=== PATIENT | male | born 1945 | race Two or more races ===

== ENCOUNTER → 2017-04-08 | Outpatient (CLI) | payer MEDICARE, OTHER ==
[2017-04-08 12:22] LABS: Basophils # (auto) 0 uL; Basophils % (auto) 0.8 % (0.0-2.0); CONDITION Y; Eosinophils # (auto) 0.2 uL; Eosinophils % (auto) 4.2 % (0.0-7.0); Hematocrit 47.6 % (41.0-53.0); Hemoglobin 16.1 g/dL (13.5-17.5); Lymphocytes # (auto) 1.7 uL; Lymphocytes % (auto) 35.1 % (10.0-50.0); Mean Corpuscular Hemoglobin 30.5 pg (28.0-32.0); Mean Corpuscular Hgb Conc. 33.8 g/dL (32.0-36.0); Mean Corpuscular Volume 90.4 fL (80.0-100.0); Monocytes # (auto) 0.4 uL; Monocytes % (auto) 7.5 % (0.0-12.0); Neutrophils # (auto) 2.5 uL; Neutrophils % (auto) 52.4 % (37.0-80.0); Platelet Count (auto) 189 10^3/uL (140-450); Red Cell Distribution Width 13.8 % (11.6-16.0); White Blood Cell 4.8 10^3/uL (4.4-10.8)
[2017-04-08 14:34] LABS: Albumin 3.9 g/dL (3.4-5.0); BUN/Creatinine Ratio 17.8; Bilirubin, Direct 0.1 mg/dL (0-0.2); Bilirubin, Total 0.7 mg/dL (0.2-1.0); Calcium 8.6 mg/dL (8.5-10.1); Potassium 4.3 mmol/L (3.5-5.1); Total Protein 7.5 g/dL (6.4-8.2)
== END | disposition home or self-care (01) ==
LOC: LAB 08:03
PROVIDERS: ATTEND Internal Medicine Cardiovascular Disease
DX: I10 Essential (primary) hypertension (principal); E78.00 Pure hypercholesterolemia, unspecified; K74.1 Hepatic sclerosis; E11.9 Type 2 diabetes mellitus without complications; E03.9 Hypothyroidism, unspecified; R97.20 Elevated prostate specific antigen [PSA]; R53.81 Other malaise; D64.9 Anemia, unspecified; E55.9 Vitamin D deficiency, unspecified; N39.0 Urinary tract infection, site not specified
CPT/HCPCS: 36415; 80048; 80061; 80076; 82306; 83036; 84153; 84403; 84443; 85025

== ENCOUNTER → 2017-06-29 | Outpatient (CLI) | payer MEDICARE ==
[2017-06-29 12:10] LABS: Basophils # (auto) 0.1 uL; Basophils % (auto) 0.9 % (0.0-2.0); CONDITION Y; Eosinophils # (auto) 0.3 uL; Eosinophils % (auto) 5.5 % (0.0-7.0); Hematocrit 31.9 % (41.0-53.0); Hemoglobin 10.8 g/dL (13.5-17.5); Lymphocytes # (auto) 1.5 uL; Lymphocytes % (auto) 25.8 % (10.0-50.0); Mean Corpuscular Hemoglobin 30.5 pg (28.0-32.0); Mean Corpuscular Hgb Conc. 33.9 g/dL (32.0-36.0); Mean Platelet Volume 9.1 fL (7.4-10.4); Monocytes # (auto) 0.5 uL; Monocytes % (auto) 8.6 % (0.0-12.0); Neutrophils # (auto) 3.5 uL; Neutrophils % (auto) 59.2 % (37.0-80.0); Platelet Count (auto) 296 10^3/uL (140-450); Red Cell Distribution Width 14.6 % (11.6-16.0); White Blood Cell 5.9 10^3/uL (4.4-10.8)
== END | disposition home or self-care (01) ==
LOC: Rad HDHVI 11:10
PROVIDERS: ATTEND Internal Medicine Cardiovascular Disease
DX: D64.9 Anemia, unspecified (principal)
CPT/HCPCS: 36415; 85025; 93971

== ENCOUNTER → 2017-07-12 | Outpatient (CLI) | payer MEDICARE ==
[2017-07-12 09:47] VITALS: BP_SYST 127; BP_SYST 131; BP_DIAS 63; BP_DIAS 78
[2017-07-12 10:00] VITALS: BP 131/78
[2017-07-12 12:00] VITALS: BP 134/76
== END | disposition home or self-care (01) ==
LOC: CHF HDHVI 09:13
PROVIDERS: ATTEND Internal Medicine Cardiovascular Disease
DX: I25.118 Atherosclerotic heart disease of native coronary artery with other forms of angina pectoris (principal); I25.708 Atherosclerosis of coronary artery bypass graft(s), unspecified, with other forms of angina pectoris; I25.718 Atherosclerosis of autologous vein coronary artery bypass graft(s) with other forms of angina pectoris; I25.728 Atherosclerosis of autologous artery coronary artery bypass graft(s) with other forms of angina pectoris; I25.798 Atherosclerosis of other coronary artery bypass graft(s) with other forms of angina pectoris; E11.9 Type 2 diabetes mellitus without complications
CPT/HCPCS: 93005; G0166; G0463

== ENCOUNTER → 2017-07-13 | Outpatient (CLI) | payer MEDICARE ==
[2017-07-13 10:01] VITALS: BP_SYST 126; BP_SYST 129; BP_DIAS 62; BP_DIAS 64
== END | disposition home or self-care (01) ==
LOC: CHF HDHVI 09:07
PROVIDERS: ATTEND Internal Medicine Cardiovascular Disease
DX: I25.118 Atherosclerotic heart disease of native coronary artery with other forms of angina pectoris (principal); I25.708 Atherosclerosis of coronary artery bypass graft(s), unspecified, with other forms of angina pectoris; I25.718 Atherosclerosis of autologous vein coronary artery bypass graft(s) with other forms of angina pectoris; I25.728 Atherosclerosis of autologous artery coronary artery bypass graft(s) with other forms of angina pectoris; I25.798 Atherosclerosis of other coronary artery bypass graft(s) with other forms of angina pectoris; Z95.1 Presence of aortocoronary bypass graft
CPT/HCPCS: 93005; G0166; G0463

== ENCOUNTER → 2017-07-14 | Outpatient (CLI) | payer MEDICARE ==
[2017-07-14 09:13] VITALS: BP_SYST 121; BP_SYST 126; BP_DIAS 67; BP_DIAS 94
== END | disposition home or self-care (01) ==
LOC: CHF HDHVI 09:14
PROVIDERS: ATTEND Internal Medicine Cardiovascular Disease
DX: I25.118 Atherosclerotic heart disease of native coronary artery with other forms of angina pectoris (principal); I25.708 Atherosclerosis of coronary artery bypass graft(s), unspecified, with other forms of angina pectoris; I25.718 Atherosclerosis of autologous vein coronary artery bypass graft(s) with other forms of angina pectoris; I25.728 Atherosclerosis of autologous artery coronary artery bypass graft(s) with other forms of angina pectoris; I25.798 Atherosclerosis of other coronary artery bypass graft(s) with other forms of angina pectoris; Z95.1 Presence of aortocoronary bypass graft
CPT/HCPCS: G0166

== ENCOUNTER → 2017-07-15 | Outpatient (CLI) | payer MEDICARE ==
[2017-07-15 09:18] VITALS: BP_SYST 129; BP_SYST 140; BP_DIAS 74; BP_DIAS 87
== END | disposition home or self-care (01) ==
LOC: CHF HDHVI 09:25
PROVIDERS: ATTEND Internal Medicine Cardiovascular Disease
DX: I25.118 Atherosclerotic heart disease of native coronary artery with other forms of angina pectoris (principal); I25.708 Atherosclerosis of coronary artery bypass graft(s), unspecified, with other forms of angina pectoris; I25.718 Atherosclerosis of autologous vein coronary artery bypass graft(s) with other forms of angina pectoris; I25.728 Atherosclerosis of autologous artery coronary artery bypass graft(s) with other forms of angina pectoris; I25.798 Atherosclerosis of other coronary artery bypass graft(s) with other forms of angina pectoris; Z95.1 Presence of aortocoronary bypass graft
CPT/HCPCS: G0166

== ENCOUNTER → 2017-07-16 | Outpatient (CLI) | payer MEDICARE ==
[2017-07-16 09:16] VITALS: BP_SYST 122; BP_SYST 130; BP_DIAS 71; BP_DIAS 74
== END | disposition home or self-care (01) ==
LOC: CHF HDHVI 09:03
PROVIDERS: ATTEND Internal Medicine Cardiovascular Disease
DX: I25.118 Atherosclerotic heart disease of native coronary artery with other forms of angina pectoris (principal); I25.708 Atherosclerosis of coronary artery bypass graft(s), unspecified, with other forms of angina pectoris; I25.718 Atherosclerosis of autologous vein coronary artery bypass graft(s) with other forms of angina pectoris; I25.728 Atherosclerosis of autologous artery coronary artery bypass graft(s) with other forms of angina pectoris; I25.798 Atherosclerosis of other coronary artery bypass graft(s) with other forms of angina pectoris; Z95.1 Presence of aortocoronary bypass graft
CPT/HCPCS: G0166

== ENCOUNTER → 2017-07-19 | Outpatient (CLI) | payer MEDICARE ==
[2017-07-19 09:16] VITALS: BP_SYST 115; BP_SYST 124; BP_DIAS 67
== END | disposition home or self-care (01) ==
LOC: CHF HDHVI 08:56
PROVIDERS: ATTEND Internal Medicine Cardiovascular Disease
DX: I25.118 Atherosclerotic heart disease of native coronary artery with other forms of angina pectoris (principal); I25.708 Atherosclerosis of coronary artery bypass graft(s), unspecified, with other forms of angina pectoris; I25.718 Atherosclerosis of autologous vein coronary artery bypass graft(s) with other forms of angina pectoris; I25.728 Atherosclerosis of autologous artery coronary artery bypass graft(s) with other forms of angina pectoris; I25.798 Atherosclerosis of other coronary artery bypass graft(s) with other forms of angina pectoris; Z95.1 Presence of aortocoronary bypass graft
CPT/HCPCS: G0166

== ENCOUNTER → 2017-07-20 | Outpatient (CLI) | payer MEDICARE ==
[2017-07-20 09:17] VITALS: BP_SYST 131; BP_SYST 133; BP_DIAS 68; BP_DIAS 77
== END | disposition home or self-care (01) ==
LOC: CHF HDHVI 08:57
PROVIDERS: ATTEND Internal Medicine Cardiovascular Disease
DX: I25.118 Atherosclerotic heart disease of native coronary artery with other forms of angina pectoris (principal); I25.708 Atherosclerosis of coronary artery bypass graft(s), unspecified, with other forms of angina pectoris; I25.718 Atherosclerosis of autologous vein coronary artery bypass graft(s) with other forms of angina pectoris; I25.728 Atherosclerosis of autologous artery coronary artery bypass graft(s) with other forms of angina pectoris; I25.798 Atherosclerosis of other coronary artery bypass graft(s) with other forms of angina pectoris; Z98.61 Coronary angioplasty status
CPT/HCPCS: G0166

== ENCOUNTER → 2017-07-21 | Outpatient (CLI) | payer MEDICARE ==
[2017-07-21 09:15] VITALS: BP 129/76
[2017-07-21 12:20] LABS: BUN/Creatinine Ratio 13.6; Calcium 8.2 mg/dL (8.5-10.1); Potassium 4.3 mmol/L (3.5-5.1)
[2017-07-21 12:23] LABS: Basophils # (auto) 0.1 uL; Eosinophils # (auto) 0.3 uL; Eosinophils % (auto) 5.6 % (0.0-7.0); Hematocrit 38.7 % (41.0-53.0); Hemoglobin 12.9 g/dL (13.5-17.5); Lymphocytes # (auto) 1.3 uL; Lymphocytes % (auto) 23.7 % (10.0-50.0); Mean Corpuscular Hemoglobin 30.4 pg (28.0-32.0); Mean Corpuscular Hgb Conc. 33.3 g/dL (32.0-36.0); Mean Corpuscular Volume 91.4 fL (80.0-100.0); Monocytes # (auto) 0.4 uL; Monocytes % (auto) 7.4 % (0.0-12.0); Neutrophils # (auto) 3.4 uL; Neutrophils % (auto) 62.3 % (37.0-80.0); Nucleated Red Blood Cells % 0.1 %; Platelet Count (auto) 135 10^3/uL (140-450); Red Cell Distribution Width 14.7 % (11.8-14.3); White Blood Cell 5.5 10^3/uL (4.4-10.8)
[2017-07-21 12:35] LABS: INR 1.03 (0.9-1.15); Partial Thromboplastin Time 28.5 sec (22.64-33.71); Prothrombin Time 11.2 sec (9.37-12.3)
== END | disposition home or self-care (01) ==
LOC: CHF HDHVI 08:55
PROVIDERS: ATTEND Internal Medicine Cardiovascular Disease
DX: Z01.818 Encounter for other preprocedural examination (principal); I25.10 Atherosclerotic heart disease of native coronary artery without angina pectoris; I44.1 Atrioventricular block, second degree; I10 Essential (primary) hypertension; D64.9 Anemia, unspecified; R79.1 Abnormal coagulation profile; Z95.0 Presence of cardiac pacemaker
CPT/HCPCS: 36415; 71020; 80048; 85025; 85610; 85730; 93005; G0463

== ENCOUNTER → 2017-08-04 | Outpatient (CLI) | payer MEDICARE ==
[2017-08-04 12:20] VITALS: BP 140/95
[2017-08-04 13:20] VITALS: BP 150/90
[2017-08-04 16:49] LABS: Basophils # (auto) 0.1 uL; Basophils % (auto) 1.6 % (0.0-2.0); Eosinophils # (auto) 0.3 uL; Hemoglobin 12.3 g/dL (13.5-17.5); Lymphocytes # (auto) 1.1 uL; Lymphocytes % (auto) 21.4 % (10.0-50.0); Mean Corpuscular Hemoglobin 30.2 pg (28.0-32.0); Mean Corpuscular Hgb Conc. 33.2 g/dL (32.0-36.0); Mean Corpuscular Volume 90.7 fL (80.0-100.0); Mean Platelet Volume 9.4 fL (6.9-10.8); Monocytes # (auto) 0.3 uL; Neutrophils # (auto) 3.4 uL; Nucleated Red Blood Cells % 0.5 %; Platelet Count (auto) 226 10^3/uL (140-450); Red Cell Distribution Width 14.4 % (11.8-14.3); White Blood Cell 5.1 10^3/uL (4.4-10.8)
== END | disposition home or self-care (01) ==
LOC: CHF HDHVI 12:47
PROVIDERS: ATTEND Internal Medicine Cardiovascular Disease
DX: D64.9 Anemia, unspecified (principal)
CPT/HCPCS: 36415; 85025; G0463

== ENCOUNTER → 2018-12-12 | Outpatient (CLI) | payer MEDICARE ==
--- NOTE | 2018-12-12 09:00 | NUR ---
EECP Tx# 1 This is Tx # 1 for Patient.Patient has Previously done EECP back in 2017. Patient has been informed of his 35 days of Tx's. Patient has been provided with EECP leggings as well as an EECP brochure. EKG has been completed. Patient has a Hx of : CORONARY ARTERY DISEASE SICK SINUS SYNDROME STATUS POST PACEMAKER CONGESTIVE HEART FAILURE HYPERTENSION HYPERLIPIDEMIA GOUT First BP check on right arm is at 112/63 with a heart rate of 69bpm. Patient denies any symptoms or discomfort at this time. 1st pleth at 1 min into Tx patient EECP pressure will increase if tolerable. 2nd pleth at 26 min into Tx patient is tolerating Tx pressure at 160 well with no discomfort or any other symptoms at this time. 3rd and final pleth at 50 min into Tx patient is doing well no symptoms or discomfort at this time.Monitor shows excellent pleth valves with a heart rate of 67bpm.Patient has 10 min left till his Tx is completed for the day. Last BP check on his L arm is at 117/81 with a heart rate of 79bpm. Patient denies any symptoms or discomfort at this time. Patient will come in on his next visit for Tx#2
[2018-12-12 09:16] VITALS: BP 112/63
--- NOTE | 2018-12-12 09:16 | NUR ---
CHF PT TO CHF BASELINE EKG DONE AND NEW START EECP TX
[2018-12-12 10:16] VITALS: BP 117/81
--- NOTE | 2018-12-12 10:16 | NUR ---
Discharge Instructions See e-MAR for any mediations given with this visit. Patient education given on disease process. Patient verbalized understanding. Previous labs reviewed. Patient discharged in stable condition with after care instructions and follow up appointment.
[2018-12-12 10:34] VITALS: BP_SYST 112; BP_SYST 117; BP_DIAS 63; BP_DIAS 81
== END | disposition home or self-care (01) ==
LOC: CHF HDHVI 09:35
PROVIDERS: ATTEND Internal Medicine Cardiovascular Disease
DX: I25.118 Atherosclerotic heart disease of native coronary artery with other forms of angina pectoris (principal); I25.718 Atherosclerosis of autologous vein coronary artery bypass graft(s) with other forms of angina pectoris; I25.728 Atherosclerosis of autologous artery coronary artery bypass graft(s) with other forms of angina pectoris; I25.798 Atherosclerosis of other coronary artery bypass graft(s) with other forms of angina pectoris; I25.10 Atherosclerotic heart disease of native coronary artery without angina pectoris; I25.708 Atherosclerosis of coronary artery bypass graft(s), unspecified, with other forms of angina pectoris; E11.9 Type 2 diabetes mellitus without complications; R94.31 Abnormal electrocardiogram [ECG] [EKG]; Z98.61 Coronary angioplasty status
CPT/HCPCS: 93005; G0166; G0463

== ENCOUNTER → 2018-12-19 | Outpatient (CLI) | payer MEDICARE ==
[2018-12-19 09:21] VITALS: BP_SYST 126; BP_SYST 130; BP_DIAS 61; BP_DIAS 62
--- NOTE | 2018-12-19 16:54 | NUR ---
EECP Tx# 2 First BP check on his Left arm is at 130/62 with a heart rate of 83bpm. Patient denies any symptoms or discomfort at this time. 1st pleth at 4 min into Tx patient EECP pressure will slowly increase if tolerable. 2nd pleth at 42 min into Tx. EECP pressure has been increase but monitor keeps showing irregular Arrhythmia bringing EECP pressure down back to 80.Patient at this time denies any chest pain,SOB,Fatigue or any other symptoms.We will continue to monitor patient through his Tx if any other changes occur. 3rd and final pleth at 53 min into Tx.Monitor shows PVC's with a heart rate of 79bpm.Patient at this time is tolerating Tx pressure at 80.Patient denies any chest pain,SOB,Fatigue or any other symptoms at this time. We will continue to monitor patient through his Tx if any changes occur. Last BP check on his Left arm is at 126/61 with a heart rate of 82bpm. Patient denies any symptoms or discomfort at this time.
== END | disposition home or self-care (01) ==
LOC: CHF HDHVI 09:12
PROVIDERS: ATTEND Internal Medicine
DX: I25.118 Atherosclerotic heart disease of native coronary artery with other forms of angina pectoris (principal); I25.708 Atherosclerosis of coronary artery bypass graft(s), unspecified, with other forms of angina pectoris; I25.718 Atherosclerosis of autologous vein coronary artery bypass graft(s) with other forms of angina pectoris; I25.728 Atherosclerosis of autologous artery coronary artery bypass graft(s) with other forms of angina pectoris; Z98.61 Coronary angioplasty status
CPT/HCPCS: G0166

== ENCOUNTER → 2018-12-21 | Outpatient (CLI) | payer MEDICARE ==
[2018-12-21 09:00] VITALS: BP_SYST 112; BP_SYST 119; BP_DIAS 70; BP_DIAS 73
--- NOTE | 2018-12-21 09:00 | NUR ---
eecp Tx# 3 First BP check on his Left arm is at 112/70 with a heart rate of 79bpm.Patient states that he didn't take his medications this morning.Monitor shows irregular Arrhythmias.Patient denies any chest pain,SOB,Fatigue or any other symptoms or discomfort at this time.Last BP AND HR 119/73 WITH A HEART RATE OF 68BPM.
== END | disposition home or self-care (01) ==
LOC: CHF HDHVI 09:39
PROVIDERS: ATTEND Internal Medicine Cardiovascular Disease
DX: I25.118 Atherosclerotic heart disease of native coronary artery with other forms of angina pectoris (principal); I25.708 Atherosclerosis of coronary artery bypass graft(s), unspecified, with other forms of angina pectoris; I25.718 Atherosclerosis of autologous vein coronary artery bypass graft(s) with other forms of angina pectoris; I25.728 Atherosclerosis of autologous artery coronary artery bypass graft(s) with other forms of angina pectoris; I25.798 Atherosclerosis of other coronary artery bypass graft(s) with other forms of angina pectoris; E11.9 Type 2 diabetes mellitus without complications; Z98.61 Coronary angioplasty status; Z95.1 Presence of aortocoronary bypass graft
CPT/HCPCS: G0166

== ENCOUNTER → 2018-12-26 | Outpatient (CLI) | payer MEDICARE ==
[2018-12-26 09:16] VITALS: BP_SYST 117; BP_SYST 118; BP_DIAS 65; BP_DIAS 67
--- NOTE | 2018-12-26 09:16 | NUR ---
EECP Tx# 4 Patient states he will be having right eye cataract procedure. First BP check on his Left arm is at 118/67 with a heart rate of 81bpm.Monitor shows irregular Arrhythmias.Excellent pleth valves.Patient denies any chest pain,SOB,Fatigue or any other symptoms or discomfort at this time.Last BP AND HR 117/65 with a heart of 67bpm.
== END | disposition home or self-care (01) ==
LOC: CHF HDHVI 09:17
PROVIDERS: ATTEND Internal Medicine Cardiovascular Disease
DX: I25.118 Atherosclerotic heart disease of native coronary artery with other forms of angina pectoris (principal); I25.708 Atherosclerosis of coronary artery bypass graft(s), unspecified, with other forms of angina pectoris; I25.718 Atherosclerosis of autologous vein coronary artery bypass graft(s) with other forms of angina pectoris; I25.728 Atherosclerosis of autologous artery coronary artery bypass graft(s) with other forms of angina pectoris; I25.798 Atherosclerosis of other coronary artery bypass graft(s) with other forms of angina pectoris; E11.9 Type 2 diabetes mellitus without complications; Z95.1 Presence of aortocoronary bypass graft; Z98.61 Coronary angioplasty status
CPT/HCPCS: G0166

== ENCOUNTER → 2019-01-06 | Outpatient (CLI) | payer MEDICARE ==
[2019-01-06 08:59] VITALS: BP_SYST 115; BP_SYST 116; BP_DIAS 61; BP_DIAS 72
--- NOTE | 2019-01-06 13:58 | NUR ---
EECP Tx# 5 First BP check on his Left arm is at 115/61 with a heart rate of 68bpm. Patient at this time denies any symptoms or discomfort. Patient EECP pressure will increase if tolerable. Patient is tolerating Tx pressure at 120 well with no discomfort at this time.Patient at this time can't tolerate eecp pressure higher than 120. Monitor shows excellent pleth valves.Heart rate at this time is 79bpm.We will continue to monitor patient through his Tx. Patient is doing well denies any symptoms or discomfort at this moment.Monitor at this time shows excellent pleth valves with a heart rate of 69bpm.Patient has 2 min left till his Tx is completed for the day. Last BP and HR check on Left arm is at 116/72 with a heart rate of 68bpm. Patient denies any symptoms or discomfort at this time.
== END | disposition home or self-care (01) ==
LOC: CHF HDHVI 08:52
PROVIDERS: ATTEND Internal Medicine
DX: I25.118 Atherosclerotic heart disease of native coronary artery with other forms of angina pectoris (principal); I25.708 Atherosclerosis of coronary artery bypass graft(s), unspecified, with other forms of angina pectoris; I25.718 Atherosclerosis of autologous vein coronary artery bypass graft(s) with other forms of angina pectoris; I25.728 Atherosclerosis of autologous artery coronary artery bypass graft(s) with other forms of angina pectoris; I25.798 Atherosclerosis of other coronary artery bypass graft(s) with other forms of angina pectoris; E11.9 Type 2 diabetes mellitus without complications; I11.0 Hypertensive heart disease with heart failure; I50.9 Heart failure, unspecified; R94.31 Abnormal electrocardiogram [ECG] [EKG]; Z95.1 Presence of aortocoronary bypass graft; Z98.61 Coronary angioplasty status; Z95.0 Presence of cardiac pacemaker
CPT/HCPCS: G0166

== ENCOUNTER → 2019-01-09 | Outpatient (CLI) | payer MEDICARE ==
[2019-01-09 08:55] VITALS: BP_SYST 110; BP_SYST 115; BP_DIAS 62; BP_DIAS 73
--- NOTE | 2019-01-09 08:55 | NUR ---
EECP Tx# 6 First BP check on his Left arm is at 110/62 with a heart rate of 79bpm. Patient at this time denies any symptoms or discomfort. Patient EECP pressure will increase if tolerable. Patient is tolerating Tx pressure at 160 well with no discomfort at this time. Patient at this time can't tolerate eecp pressure higher than 160. We will continue to monitor patient through his Tx. Patient is doing well denies any symptoms or discomfort at this moment.Monitor at this time shows excellent pleth valves with a heart rate of 71bpm.Patient has 5 min left till his Tx is completed for the day. Last BP and HR check on Left arm is at 115/73 with a heart rate of 70bpm. Patient denies any symptoms or discomfort at this time.
== END | disposition home or self-care (01) ==
LOC: Rad HDHVI 08:53
PROVIDERS: ATTEND Internal Medicine Cardiovascular Disease
DX: I11.0 Hypertensive heart disease with heart failure (principal); I50.9 Heart failure, unspecified; I25.118 Atherosclerotic heart disease of native coronary artery with other forms of angina pectoris; I25.708 Atherosclerosis of coronary artery bypass graft(s), unspecified, with other forms of angina pectoris; I25.718 Atherosclerosis of autologous vein coronary artery bypass graft(s) with other forms of angina pectoris; I25.728 Atherosclerosis of autologous artery coronary artery bypass graft(s) with other forms of angina pectoris; I25.798 Atherosclerosis of other coronary artery bypass graft(s) with other forms of angina pectoris; E11.9 Type 2 diabetes mellitus without complications; Z98.61 Coronary angioplasty status; Z95.1 Presence of aortocoronary bypass graft; Z95.0 Presence of cardiac pacemaker
CPT/HCPCS: G0166

== ENCOUNTER → 2019-01-11 | Outpatient (CLI) | payer MEDICARE ==
[2019-01-11 09:15] VITALS: BP_SYST 108; BP_SYST 113; BP_DIAS 67; BP_DIAS 72
--- NOTE | 2019-01-11 09:15 | NUR ---
EECP Tx# 7 First BP check on his Left arm is at 108/67 with a heart rate of 70bpm. Patient at this time denies any symptoms or discomfort. Patient EECP pressure will increase if tolerable. Patient is tolerating Tx pressure at 160 well with no discomfort at this time. Patient at this time can't tolerate eecp pressure higher than 160.We will continue to monitor patient through his Tx if any other changes occur. Patient is doing well denies any symptoms or discomfort at this moment.Monitor shows excellent pleth valves with a heart rate of 64bpm at this time.Patient has 5 min left till his Tx is completed for the day. Last BP and HR check on Left arm is at 113/72 with a heart rate of 80bpm. Patient denies any symptoms or discomfort at this time.
== END | disposition home or self-care (01) ==
LOC: Rad HDHVI 09:00
PROVIDERS: ATTEND Internal Medicine
DX: I25.118 Atherosclerotic heart disease of native coronary artery with other forms of angina pectoris (principal); I25.708 Atherosclerosis of coronary artery bypass graft(s), unspecified, with other forms of angina pectoris; I25.718 Atherosclerosis of autologous vein coronary artery bypass graft(s) with other forms of angina pectoris; I25.728 Atherosclerosis of autologous artery coronary artery bypass graft(s) with other forms of angina pectoris; I11.0 Hypertensive heart disease with heart failure; I50.9 Heart failure, unspecified; Z98.61 Coronary angioplasty status; Z95.1 Presence of aortocoronary bypass graft
CPT/HCPCS: G0166

== ENCOUNTER → 2019-01-13 | Outpatient (CLI) | payer MEDICARE ==
[2019-01-13 09:00] VITALS: BP_SYST 107; BP_SYST 113; BP_DIAS 60; BP_DIAS 64
--- NOTE | 2019-01-13 12:23 | NUR ---
EECP Tx# 8 First BP check on his Left arm is at 107/60 with a heart rate of 71bpm. Patient at this time denies any symptoms or discomfort. Patient EECP pressure will increase if tolerable. Patient is tolerating Tx pressure at 160 well with no discomfort at this time. Patient at this time can't tolerate eecp pressure higher than 160. We will continue to monitor patient through his Tx if any other changes occur. At 34 min into Tx patient is doing well denies any symptoms or discomfort at this time.Monitor shows good pleth valves with a heart rate of 66bpm at this time. Patient has 6 min left till his Tx is completed for the day. Last BP and HR check on Left arm is at 113/64 with a heart rate of 64bpm. Patient denies any symptoms or discomfort at this time.
== END | disposition home or self-care (01) ==
LOC: CHF HDHVI 09:15
PROVIDERS: ATTEND Internal Medicine Cardiovascular Disease
DX: I25.118 Atherosclerotic heart disease of native coronary artery with other forms of angina pectoris (principal); I25.708 Atherosclerosis of coronary artery bypass graft(s), unspecified, with other forms of angina pectoris; I25.718 Atherosclerosis of autologous vein coronary artery bypass graft(s) with other forms of angina pectoris; I25.728 Atherosclerosis of autologous artery coronary artery bypass graft(s) with other forms of angina pectoris; I25.798 Atherosclerosis of other coronary artery bypass graft(s) with other forms of angina pectoris; E11.9 Type 2 diabetes mellitus without complications; I11.0 Hypertensive heart disease with heart failure; I50.9 Heart failure, unspecified; Z98.61 Coronary angioplasty status
CPT/HCPCS: G0166

== ENCOUNTER → 2019-01-16 | Outpatient (CLI) | payer MEDICARE ==
[2019-01-16 08:53] VITALS: BP_SYST 117; BP_SYST 130; BP_DIAS 62; BP_DIAS 63
--- NOTE | 2019-01-16 10:11 | NUR ---
EECP Tx# 9 First BP check on his Left arm is at 130/63 with a heart rate of 76bpm. Patient at this time denies any symptoms or discomfort. Patient EECP pressure will increase if tolerable. EECP pressure at this time is 80.Irregular Arrhythmias shown when EECP pressure is increase.Patient denies any symptoms or discomfort at this time.We will continue to monitor patient if any other changes occur. At 59 min into Tx patient is doing well denies any symptoms or discomfort at this time.Monitor shows good pleth valves with a heart rate of 73bpm at this time. Patient has 1 min left till his Tx is completed for the day. Last BP and HR check on Left arm is at 117/62 with a heart rate of 82bpm. Patient denies any symptoms or discomfort at this time.
== END | disposition home or self-care (01) ==
LOC: CHF HDHVI 08:34
PROVIDERS: ATTEND Internal Medicine Cardiovascular Disease
DX: I25.118 Atherosclerotic heart disease of native coronary artery with other forms of angina pectoris (principal); I25.708 Atherosclerosis of coronary artery bypass graft(s), unspecified, with other forms of angina pectoris; I25.718 Atherosclerosis of autologous vein coronary artery bypass graft(s) with other forms of angina pectoris; I25.798 Atherosclerosis of other coronary artery bypass graft(s) with other forms of angina pectoris; E11.9 Type 2 diabetes mellitus without complications; I11.0 Hypertensive heart disease with heart failure; I50.9 Heart failure, unspecified; Z95.1 Presence of aortocoronary bypass graft; Z98.61 Coronary angioplasty status
CPT/HCPCS: G0166

== ENCOUNTER → 2019-01-18 | Outpatient (CLI) | payer MEDICARE ==
--- NOTE | 2019-01-18 15:31 | NUR ---
EECP Tx# 10 First BP check on his Left arm is at 104/67 with a heart rate of 70bpm. Patient at this time denies any symptoms or discomfort. Patient EECP pressure will increase if tolerable. Patient is tolerating eecp pressure at 200.Patient is tolerating Tx pressure well with no discomfort at this time.Monitor show excellent pleth valves with a heart rate of 71bpm. At 59 min into Tx patient is doing well with no discomfort at this time.Monitor shows good pleth valves with a heart rate of 66bpm.Patient has 1 min left till his Tx is completed for the day. Last BP and HR check on his Left arm is at 114/70 with a heart rate of 65bpm. Patient at this time denies any symptoms or discomfort.
[2019-01-18 15:36] VITALS: BP 104/67
[2019-01-18 15:37] VITALS: BP 114/70
== END | disposition home or self-care (01) ==
LOC: CHF HDHVI 09:02
PROVIDERS: ATTEND Internal Medicine Cardiovascular Disease
DX: I25.118 Atherosclerotic heart disease of native coronary artery with other forms of angina pectoris (principal); I25.708 Atherosclerosis of coronary artery bypass graft(s), unspecified, with other forms of angina pectoris; I25.718 Atherosclerosis of autologous vein coronary artery bypass graft(s) with other forms of angina pectoris; I25.728 Atherosclerosis of autologous artery coronary artery bypass graft(s) with other forms of angina pectoris; I25.798 Atherosclerosis of other coronary artery bypass graft(s) with other forms of angina pectoris; E11.9 Type 2 diabetes mellitus without complications; I11.0 Hypertensive heart disease with heart failure; I50.9 Heart failure, unspecified; Z95.1 Presence of aortocoronary bypass graft; Z98.61 Coronary angioplasty status
CPT/HCPCS: G0166

== ENCOUNTER → 2019-01-20 | Outpatient (CLI) | payer MEDICARE ==
[2019-01-20 09:11] VITALS: BP_SYST 113; BP_SYST 134; BP_DIAS 68; BP_DIAS 90
--- NOTE | 2019-01-20 16:06 | NUR ---
EECP Tx# 11 First BP check on his Left arm is at 134/90 with a heart rate of 60bpm. Patient at this time denies any symptoms or discomfort. Patient EECP pressure will increase if tolerable. 41 min into Tx.Patient is tolerating eecp pressure at 160. Patient can't tolerate pressure higher than 160 at this time.Monitor show good pleth valves with a heart rate of 66bpm. At 57 min into Tx patient is doing well with no discomfort at this time.Monitor shows excellent pleth valves with a heart rate of 67bpm.Patient has 3 min left till his Tx is completed for the day. Last BP and HR check on his Left arm is at 113/68 with a heart rate of 77bpm. Patient at this time denies any symptoms or discomfort.
== END | disposition home or self-care (01) ==
LOC: CHF HDHVI 09:05
PROVIDERS: ATTEND Internal Medicine Cardiovascular Disease
DX: I25.118 Atherosclerotic heart disease of native coronary artery with other forms of angina pectoris (principal); I25.708 Atherosclerosis of coronary artery bypass graft(s), unspecified, with other forms of angina pectoris; I25.718 Atherosclerosis of autologous vein coronary artery bypass graft(s) with other forms of angina pectoris; I25.728 Atherosclerosis of autologous artery coronary artery bypass graft(s) with other forms of angina pectoris; I25.798 Atherosclerosis of other coronary artery bypass graft(s) with other forms of angina pectoris; I11.0 Hypertensive heart disease with heart failure; I50.9 Heart failure, unspecified; Z95.1 Presence of aortocoronary bypass graft; Z98.61 Coronary angioplasty status; Z95.0 Presence of cardiac pacemaker
CPT/HCPCS: G0166

== ENCOUNTER → 2019-01-25 | Outpatient (CLI) | payer MEDICARE ==
--- NOTE | 2019-01-25 12:03 | NUR ---
EECP Tx# 12 First BP check on his Left arm is at 110/62 with a heart rate of 71bpm. Patient at this time denies any symptoms or discomfort. Patient EECP pressure will increase if tolerable. 2nd pleth at 41 min into Tx.Patient is tolerating eecp pressure at 160.EECP pressure will increase if tolerable. At 58 min into Tx patient is doing well with no discomfort at this time.EECP pressure was increase up to 200.Patient is tolerating Tx pressure at this time with no discomfort.Monitor shows excellent pleth valves with a heart rate of 79bpm.Patient has 2 min left till his Tx is completed for the day. Last BP and HR check on his Left arm is at 103/72 with a heart rate of 80bpm. Patient at this time denies any symptoms or discomfort.
[2019-01-25 12:08] VITALS: BP_SYST 103; BP_SYST 110; BP_DIAS 62; BP_DIAS 72
== END | disposition home or self-care (01) ==
LOC: CHF HDHVI 09:18
PROVIDERS: ATTEND Internal Medicine Cardiovascular Disease
DX: I25.118 Atherosclerotic heart disease of native coronary artery with other forms of angina pectoris (principal); E11.9 Type 2 diabetes mellitus without complications; I25.708 Atherosclerosis of coronary artery bypass graft(s), unspecified, with other forms of angina pectoris; I25.718 Atherosclerosis of autologous vein coronary artery bypass graft(s) with other forms of angina pectoris; I25.728 Atherosclerosis of autologous artery coronary artery bypass graft(s) with other forms of angina pectoris; I25.798 Atherosclerosis of other coronary artery bypass graft(s) with other forms of angina pectoris; I11.0 Hypertensive heart disease with heart failure; I50.9 Heart failure, unspecified; Z95.1 Presence of aortocoronary bypass graft; Z98.61 Coronary angioplasty status; Z95.0 Presence of cardiac pacemaker
CPT/HCPCS: G0166

== ENCOUNTER → 2019-01-30 | Outpatient (CLI) | payer MEDICARE ==
--- NOTE | 2019-01-30 12:07 | NUR ---
eecp Tx# 13 First BP check on his Left arm is at 104/85 with a heart rate of 66bpm. Patient at this time denies any symptoms or discomfort Per patient he did not take his medication this AM will take them once he gets home form his Tx. Patient EECP pressure will increase if tolerable. 41 min into Tx patient EECP pressure is increase up to 120.Patient denies any symptoms or discomfort at this time. EECP pressure will be increase if tolerable. 3rd and final pleth at 57 min into Tx.Monitor shows arrhythmias.Patient at this time denies any symptoms or discomfort..Heart rate is at 90bpm.Will continue to monitor patient through his Tx if any changes occur. Last BP check on left arm is 106/61 with a heart rate of 78bpm. Patient at this time denies any symptoms or discomfort.
[2019-01-30 12:15] VITALS: BP_SYST 104; BP_SYST 106; BP_DIAS 61; BP_DIAS 85
== END | disposition home or self-care (01) ==
LOC: CHF HDHVI 09:11
PROVIDERS: ATTEND Internal Medicine Cardiovascular Disease
DX: I25.118 Atherosclerotic heart disease of native coronary artery with other forms of angina pectoris (principal); I25.708 Atherosclerosis of coronary artery bypass graft(s), unspecified, with other forms of angina pectoris; I25.718 Atherosclerosis of autologous vein coronary artery bypass graft(s) with other forms of angina pectoris; I25.728 Atherosclerosis of autologous artery coronary artery bypass graft(s) with other forms of angina pectoris; I25.798 Atherosclerosis of other coronary artery bypass graft(s) with other forms of angina pectoris; E11.9 Type 2 diabetes mellitus without complications; I11.0 Hypertensive heart disease with heart failure; I50.9 Heart failure, unspecified; Z98.61 Coronary angioplasty status; Z95.1 Presence of aortocoronary bypass graft; Z95.0 Presence of cardiac pacemaker
CPT/HCPCS: G0166

== ENCOUNTER → 2019-02-01 | Outpatient (CLI) | payer MEDICARE ==
--- NOTE | 2019-02-01 10:56 | NUR ---
eecp Tx# 14 First BP check on his Left arm is at 113/63 with a heart rate of 67bpm. Patient at this time denies any symptoms or discomfort Per patient he does not take his medication in the AM will take them once he gets home form his Tx. Patient EECP pressure will increase if tolerable. 24 min into Tx patient EECP pressure is increase up to 120. Monitor shows irregular rhythms heart rate increase to 119 and rapidly drops down to 61bpm. Patient denies any symptoms or discomfort at this time.Will continue to monitor patient through his Tx if any changes occur. 3rd and final pleth at 52 min into Tx.Monitor shows arrhythmias.Patient at this time denies any symptoms or discomfort.Heart rate is at 67bpm.Will continue to monitor patient through his Tx if any changes occur. Last BP check on left arm is 118/67 with a heart rate of 80bpm. Patient at this time denies any symptoms or discomfort.
[2019-02-01 11:15] VITALS: BP_SYST 113; BP_SYST 118; BP_DIAS 63; BP_DIAS 67
== END | disposition home or self-care (01) ==
LOC: CHF HDHVI 09:08
PROVIDERS: ATTEND Internal Medicine Cardiovascular Disease
DX: I25.118 Atherosclerotic heart disease of native coronary artery with other forms of angina pectoris (principal); I25.708 Atherosclerosis of coronary artery bypass graft(s), unspecified, with other forms of angina pectoris; I25.718 Atherosclerosis of autologous vein coronary artery bypass graft(s) with other forms of angina pectoris; I25.728 Atherosclerosis of autologous artery coronary artery bypass graft(s) with other forms of angina pectoris; I25.798 Atherosclerosis of other coronary artery bypass graft(s) with other forms of angina pectoris; I11.0 Hypertensive heart disease with heart failure; I50.9 Heart failure, unspecified; E11.9 Type 2 diabetes mellitus without complications; Z95.0 Presence of cardiac pacemaker; Z95.1 Presence of aortocoronary bypass graft; Z98.61 Coronary angioplasty status
CPT/HCPCS: G0166

== ENCOUNTER → 2019-02-06 | Outpatient (CLI) | payer MEDICARE ==
[2019-02-06 09:20] VITALS: BP_SYST 112; BP_SYST 124; BP_DIAS 68; BP_DIAS 74
--- NOTE | 2019-02-06 10:56 | NUR ---
eecp Tx# 15 First BP check on his Left arm is at 124/74 with a heart rate of 71bpm. Patient at this time denies any symptoms or discomfort Per patient he does not take his medication in the AM will take them once he gets home form his Tx. Patient EECP pressure will increase if tolerable. 42 min into Tx patient EECP pressure is increase up to 160.Monitor shows excellent pleth valves with a heart rate of 67bpm. 3rd and final pleth at 56 min into Tx.Monitor shows arrhythmias.Patient at this time denies any symptoms or discomfort.Heart rate is at 65bpm.Will continue to monitor patient through his Tx if any changes occur.Patient has 4 min left till his Tx is completed for the day. Last BP check on left arm is 112/68 with a heart rate of 68bpm. Patient at this time denies any symptoms or discomfort.
== END | disposition home or self-care (01) ==
LOC: CHF HDHVI 09:16
PROVIDERS: ATTEND Internal Medicine Cardiovascular Disease
DX: I25.118 Atherosclerotic heart disease of native coronary artery with other forms of angina pectoris (principal); I25.708 Atherosclerosis of coronary artery bypass graft(s), unspecified, with other forms of angina pectoris; I25.718 Atherosclerosis of autologous vein coronary artery bypass graft(s) with other forms of angina pectoris; I25.728 Atherosclerosis of autologous artery coronary artery bypass graft(s) with other forms of angina pectoris; I25.798 Atherosclerosis of other coronary artery bypass graft(s) with other forms of angina pectoris; E11.9 Type 2 diabetes mellitus without complications; I11.0 Hypertensive heart disease with heart failure; I50.9 Heart failure, unspecified; Z95.1 Presence of aortocoronary bypass graft; Z98.61 Coronary angioplasty status; Z95.0 Presence of cardiac pacemaker
CPT/HCPCS: G0166

== ENCOUNTER → 2019-02-10 | Outpatient (CLI) | payer MEDICARE ==
--- NOTE | 2019-02-10 09:00 | NUR ---
CP Tx# 17 First BP check on his Left arm is at 101/74 with a heart rate of 81bpm.Patient at this time denies any symptoms or discomfort.Medications have been review with patient per patient he states his Metoprolol has changed to Metoprolol 50mg QD.Medication has been updated. EECP pressure will slowly be increase if tolerable.At 44 min into Tx patient is tolerating Tx pressure at 220 well with no discomfort or complaints at this time.Monitor shows good pleth valves with a heart rate of 83bpm.3rd pleth check at 58 min into Tx monitor shows good pleth valves with a heart rate of 68bpm.At this time patient has 2 min left till his Tx is completed for the day. Last BP check on his Left arm is at 107/65 with a heart rate of 76bpm.Patient denies any symptoms or discomfort at this time.
[2019-02-10 12:00] VITALS: BP_SYST 101; BP_SYST 107; BP_DIAS 65; BP_DIAS 74
== END | disposition home or self-care (01) ==
LOC: CHF HDHVI 09:16
PROVIDERS: ATTEND Internal Medicine Cardiovascular Disease
DX: I25.118 Atherosclerotic heart disease of native coronary artery with other forms of angina pectoris (principal); I25.708 Atherosclerosis of coronary artery bypass graft(s), unspecified, with other forms of angina pectoris; I25.718 Atherosclerosis of autologous vein coronary artery bypass graft(s) with other forms of angina pectoris; I25.728 Atherosclerosis of autologous artery coronary artery bypass graft(s) with other forms of angina pectoris; I25.798 Atherosclerosis of other coronary artery bypass graft(s) with other forms of angina pectoris; E11.9 Type 2 diabetes mellitus without complications; I11.0 Hypertensive heart disease with heart failure; I50.9 Heart failure, unspecified; Z95.0 Presence of cardiac pacemaker; Z98.61 Coronary angioplasty status; Z95.1 Presence of aortocoronary bypass graft
CPT/HCPCS: G0166

== ENCOUNTER → 2019-02-13 | Outpatient (CLI) | payer MEDICARE ==
--- NOTE | 2019-02-13 12:00 | NUR ---
eecp Tx# 18 First BP check on his Left arm is at 120/88 with a heart rate of 78bpm.At this time patient denies any symptoms or discomfort per patient he takes his medications after his Tx is completed for the day.Per patient he notify me that he will be having cataract surgery and he will need to take days off his Tx's Patient will notify me when he returns to continue with his Tx. will be notify as well.EECP pressure at this time will increase if tolerable. 2nd pleth at 29 min into Tx patient is tolerating Tx pressure at 220 well with no discomfort at this time.Monitor shows good pleth valves with a heart rate of 82bpm.Patient denies any symptoms or discomfort at this time.3rd pleth at 59 min into Tx patient is tolerating Tx pressure at 220 well with no complaint or discomfort at this time.Monitor shows good pleth valves heart rate at this time is 81bpm.Last BP and Hr will be check at the end of his EECP Tx. Last BP check on his Left arm is at 106/60 with a heart rate of 71bpm. Patient at this time denies any symptoms or discomfort.
[2019-02-13 12:08] VITALS: BP_SYST 106; BP_SYST 120; BP_DIAS 60; BP_DIAS 88
== END | disposition home or self-care (01) ==
LOC: CHF HDHVI 09:00
PROVIDERS: ATTEND Internal Medicine Cardiovascular Disease
DX: I25.118 Atherosclerotic heart disease of native coronary artery with other forms of angina pectoris (principal); I25.708 Atherosclerosis of coronary artery bypass graft(s), unspecified, with other forms of angina pectoris; I25.718 Atherosclerosis of autologous vein coronary artery bypass graft(s) with other forms of angina pectoris; I25.728 Atherosclerosis of autologous artery coronary artery bypass graft(s) with other forms of angina pectoris; I25.798 Atherosclerosis of other coronary artery bypass graft(s) with other forms of angina pectoris; E11.9 Type 2 diabetes mellitus without complications; I11.0 Hypertensive heart disease with heart failure; I50.9 Heart failure, unspecified; Z95.1 Presence of aortocoronary bypass graft; Z98.61 Coronary angioplasty status; Z95.0 Presence of cardiac pacemaker
CPT/HCPCS: G0166

== ENCOUNTER → 2019-03-13 | Outpatient (CLI) | payer MEDICARE ==
--- NOTE | 2019-03-13 09:00 | NUR ---
TREATMENT # 18 FIRST BLOOD PRESSURE 115/71, HR 68, EECP 200 START TIME AT 0906 FIRST BLETH 2 MINUTES INTO TREATMENT P 0.4, A 0.4, I 288, D 704, HR 80 PT IS ALERT ORIENTED X4, AMBULATORY, DENIES ANY CHEST PAIN OR SHORTNESS OF BREATH, PATIENT WILL RESUME ARINEXT AFTER THE EECP TREATMENT AT HOME, NO MEDICATION CHANGES NOTED. TREATMENT ON STANDBY, PT IS OUT TO USE THE BATHROOM PT IS BACK FROM USING THE BATHROOM, TREATMENT RESUME AT 0926 SECOND BLETH 22 MIN INTO TREATMENT P0.8, A 1.1, I 285, D 721, P 200, HR 68 PATIENT CONTINUE TOLERATING THE TREATMENT WELL, NO PVCS NOTED. THIRD BLETH 50 MINUETS INTO TREATMENT P 1.0, A 0.5, I 281, D 705, P 200, R 71 PATIENT TOLERATED TREATMENT WELL, NO ECGS CHANGES STOP TREATMENT TIME AT 10:13 LAST BLOOD PRESSURE IS 128/80 HR 80
[2019-03-13 09:06] VITALS: BP_SYST 115; BP_SYST 128; BP_DIAS 71; BP_DIAS 78
== END | disposition home or self-care (01) ==
LOC: Rad HDHVI 08:49
PROVIDERS: ATTEND Internal Medicine
DX: I25.118 Atherosclerotic heart disease of native coronary artery with other forms of angina pectoris (principal); I25.708 Atherosclerosis of coronary artery bypass graft(s), unspecified, with other forms of angina pectoris; I25.718 Atherosclerosis of autologous vein coronary artery bypass graft(s) with other forms of angina pectoris; I25.728 Atherosclerosis of autologous artery coronary artery bypass graft(s) with other forms of angina pectoris; I25.798 Atherosclerosis of other coronary artery bypass graft(s) with other forms of angina pectoris; E11.9 Type 2 diabetes mellitus without complications; I11.0 Hypertensive heart disease with heart failure; I50.9 Heart failure, unspecified; Z98.61 Coronary angioplasty status; Z95.0 Presence of cardiac pacemaker
CPT/HCPCS: G0166

== ENCOUNTER → 2019-03-15 | Outpatient (CLI) | payer MEDICARE ==
--- NOTE | 2019-03-15 15:22 | NUR ---
EECP TREATMENT #19 FIRST BP CHECK ON HIS LEFT ARM IS AT 118/72 WITH A HEART RATE OF 76BPM.AT THIS TIME PATIENT DENIES ANY SYMPTOMS OR DISCOMFORT. MEDICATIONS HAVE BEEN UPDATED NO NEW CHANGES AT THIS TIME.PATIENT STATES HE TAKES HIS MEDICATIONS AFTER HE HAS COMPLETED HIS TREATMENT. 1ST PLETH AT 1 MIN INTO TREATMENT EECP PRESSURE WILL SLOWLY INCREASE IF TOLERABLE. 2ND PLETH AT 39 MIN INTO TREATMENT PATIENT IS TOLERATING TREATMENT PRESSURE AT 160.PATIENT AT THIS TIME CAN'T TOLERATE PRESSURE HIGHER THAN 160.MONITOR SHOWS EXCELLENT PLETH VALVES WITH A HEART RATE OF 70BPM.PATIENT AT THIS TIME DENIES ANY SYMPTOMS OR DISCOMFORT AT THIS TIME. 3RD AND FINAL PLETH AT 51 MIN INTO TREATMENT PATIENT IS TOLERATING TREATMENT PRESSURE WELL WITH NO DISCOMFORT AT THIS TIME.MONITOR SHOWS GOOD PLETH VALVES WITH A HEART RATE OF 65BPM.PATIENT HAS 9 MIN LEFT TILL HIS TREATMENT IS COMPLETED FOR THE DAY. LAST BP CHECK ON HIS LEFT ARM IS AT 119/76 WITH A HEART RATE OF 88BPM. PATIENT AT THIS TIME DENIES ANY SYMPTOMS OR DISCOMFORT
[2019-03-15 15:43] VITALS: BP_SYST 118; BP_SYST 119; BP_DIAS 72; BP_DIAS 76
== END | disposition home or self-care (01) ==
LOC: Rad HDHVI 09:09
PROVIDERS: ATTEND Internal Medicine Cardiovascular Disease
DX: I25.118 Atherosclerotic heart disease of native coronary artery with other forms of angina pectoris (principal); I25.708 Atherosclerosis of coronary artery bypass graft(s), unspecified, with other forms of angina pectoris; I25.718 Atherosclerosis of autologous vein coronary artery bypass graft(s) with other forms of angina pectoris; I25.728 Atherosclerosis of autologous artery coronary artery bypass graft(s) with other forms of angina pectoris; I25.798 Atherosclerosis of other coronary artery bypass graft(s) with other forms of angina pectoris; E11.9 Type 2 diabetes mellitus without complications; I11.0 Hypertensive heart disease with heart failure; I50.9 Heart failure, unspecified; Z98.61 Coronary angioplasty status; Z95.1 Presence of aortocoronary bypass graft; Z95.0 Presence of cardiac pacemaker
CPT/HCPCS: G0166

== ENCOUNTER → 2019-03-17 | Outpatient (CLI) | payer MEDICARE ==
--- NOTE | 2019-03-17 10:25 | NUR ---
EECP TREATMENT #20 FIRST BP CHECK ON HIS 121/67 WITH A HEART RATE OF 70BPM. AT THIS TIME PATIENT DENIES ANY SYMPTOMS OR DISCOMFORT.PATIENT STATES THAT HE TAKES HIS MEDICATIONS AFTER HIS TREATMENTS. Patient eecp pressure will increase if tolerable.2nd pleth at 37 min into treatment patient is tolerating treatment pressure at 160 well with no discomfort at this time.Monitor shows good pleth valves with a heart rate of 72bpm.3rd and final pleth patient is tolerating treatment pressure at 160 well monitor shows good pleth valves with a heart rate of 72bpm.At this time patient denies any symptoms or discomfort.Patient has 9 min remaining till his treatment is completed for the day. Last BP and HR check on his Left arm is at 121/74 with a heart rate of 80bpm. At this time patient denies any symptoms or discomfort.
[2019-03-17 10:33] VITALS: BP_SYST 121; BP_DIAS 67; BP_DIAS 74
== END | disposition home or self-care (01) ==
LOC: Rad HDHVI 09:55
PROVIDERS: ATTEND Internal Medicine Cardiovascular Disease
DX: I25.118 Atherosclerotic heart disease of native coronary artery with other forms of angina pectoris (principal); I25.708 Atherosclerosis of coronary artery bypass graft(s), unspecified, with other forms of angina pectoris; I25.718 Atherosclerosis of autologous vein coronary artery bypass graft(s) with other forms of angina pectoris; I25.728 Atherosclerosis of autologous artery coronary artery bypass graft(s) with other forms of angina pectoris; I25.798 Atherosclerosis of other coronary artery bypass graft(s) with other forms of angina pectoris; E11.9 Type 2 diabetes mellitus without complications; I11.0 Hypertensive heart disease with heart failure; I50.9 Heart failure, unspecified; Z95.1 Presence of aortocoronary bypass graft
CPT/HCPCS: G0166

== ENCOUNTER → 2019-03-22 | Outpatient (CLI) | payer MEDICARE ==
--- NOTE | 2019-03-22 12:18 | NUR ---
[facility] TREATMENTS# 21 First BP CHECK on his Left arm is at 108/69 with a heart rate of 66bpm. Per patient he states that he fell on the sidewalk and hit his right side. Patient at the time was feeling discomfort and pain. At this time patient discomfort level is at 2/10.Patient states he did not took anything for his right side discomfort. Medications have been review with patient no new changes at this time. 1st pleth at [facility] pressure will slowly increase if tolerable. 2nd pleth at 41 min into treatment at this time patient is tolerating treatment pressure at 80 well with no discomfort at this time.Patient can't tolerate pressure higher than 80 at this time.Patient denies any symptoms or discomfort.Monitor shows excellent pleth valves heart rate at this time is 96bpm.We will monitor patient if any changes occur at this time. 3rd and final pleth at 50 min into treatment patient is tolerating treatment pressure at 80 well.At this time i relocated electrodes for an accurate reading.Monitor shows heart rate at 83bpm.Patient denies any symptoms or discomfort at this time. Patient has 10 min left till his treatment is completed for the day. Last BP and HR check on his right arm is at 122/81 with a heart rate of 79bpm. Patient denies any symptoms or discomfort at this time.
[2019-03-22 12:44] VITALS: BP 108/69
[2019-03-22 12:45] VITALS: BP 122/81
== END | disposition home or self-care (01) ==
LOC: CHF HDHVI 08:50
PROVIDERS: ATTEND Internal Medicine Cardiovascular Disease
DX: I25.118 Atherosclerotic heart disease of native coronary artery with other forms of angina pectoris (principal); I25.708 Atherosclerosis of coronary artery bypass graft(s), unspecified, with other forms of angina pectoris; I25.718 Atherosclerosis of autologous vein coronary artery bypass graft(s) with other forms of angina pectoris; I25.728 Atherosclerosis of autologous artery coronary artery bypass graft(s) with other forms of angina pectoris; I25.798 Atherosclerosis of other coronary artery bypass graft(s) with other forms of angina pectoris; E11.9 Type 2 diabetes mellitus without complications; Z95.1 Presence of aortocoronary bypass graft; Z98.61 Coronary angioplasty status
CPT/HCPCS: G0166

== ENCOUNTER → 2019-03-27 | Outpatient (CLI) | payer MEDICARE ==
[2019-03-27 09:07] VITALS: BP_SYST 100; BP_SYST 102; BP_DIAS 53; BP_DIAS 62
--- NOTE | 2019-03-27 09:07 | NUR ---
EECP TREATMENT # 22 PATIENT IS ALERT ORIENTED X4, WALK IN EECP ROOM, AWARE OF THE PROCEDURE, VERIFY PATIENT MEDICATIONS NO NEW CHANGES NOTED, PT CONTINUE ON ARGINEXT, PT WILL TAKE IT AFTER ARRIVING HOME, PATIENT STATED < I DID TRIP OVER THE CARB ON WEDNESDAY, MY RIGHT SIDE IS SORE, I ID NOT GO TO THE DOCTOR, BUT I TOOK A BABY ASPIRIN>. FIRST BLETH TAKEN 3 MINUTES INTO TREATMENT P 0.8, A 1.1, I 288, D 724, P 200, HR 70 PATIENT IS TOLERATING THE TREATMENT WELL, ADVICED PATIENT TO PUT HIS PHONE DOWN AFTER OCCASIONA PVC NOTED. SECOND BLETH TAKEN 34 MINUTES INTO TREATMENT P 0.5, A 0.7, I 250 , D 367, P 220, HR [address] BLETH 56 MINUTES P 0.6, A 0.8, I 251, D 601, HR 77 STOP TIME AT 10:16 TREATMENT GOT INTERRUPTED FROM 0930 TO 0935 DUE TO POOR LEADS CONNECTION PATIENT TOLERATED TREATMENT WELL, NO DISTRESS NOTED, MONTHLY CONSENTS ARE SIGN BY PT
--- NOTE | 2019-03-27 09:15 | NUR ---
PRESSURE INCREASED UP TO 220, PT TOLERATED WELL
== END | disposition home or self-care (01) ==
LOC: CHF HDHVI 08:58
PROVIDERS: ATTEND Internal Medicine Cardiovascular Disease
DX: I25.118 Atherosclerotic heart disease of native coronary artery with other forms of angina pectoris (principal); I25.708 Atherosclerosis of coronary artery bypass graft(s), unspecified, with other forms of angina pectoris; I25.718 Atherosclerosis of autologous vein coronary artery bypass graft(s) with other forms of angina pectoris; I25.728 Atherosclerosis of autologous artery coronary artery bypass graft(s) with other forms of angina pectoris; I25.798 Atherosclerosis of other coronary artery bypass graft(s) with other forms of angina pectoris; I11.0 Hypertensive heart disease with heart failure; I50.9 Heart failure, unspecified; E11.9 Type 2 diabetes mellitus without complications; Z95.1 Presence of aortocoronary bypass graft; Z98.61 Coronary angioplasty status; Z95.0 Presence of cardiac pacemaker
CPT/HCPCS: G0166

== ENCOUNTER → 2019-04-05 | Outpatient (CLI) | payer MEDICARE ==
--- NOTE | 2019-04-05 09:15 | NUR ---
PATIENT IN FOR EECP TX, PATIENT STATES HE HAS PAIN IN HIS LEFT HIP FROM A PREVIOUS TREATMENT. DON AT BEDSIDE TO ADJUST PACEMAKER SETTINGS FOR TREATMENT. PATIENT ASKING QUESTIONS RELATING TO PACEMAKER ADJUSTMENTS ALL QUESTIONS ANSWERED PATIENT VERBALIZED UNDERSTANDING.
[2019-04-05 09:30] VITALS: BP 133/76
--- NOTE | 2019-04-05 09:30 | NUR ---
TREATMENT STARTED WITH PACEMAKER SETTING CHANGED TO DDI, WILL RETURN PACEMAKER TO ORIGINAL SETTING AFTER TREATMENT COMPLETED.
--- NOTE | 2019-04-05 09:40 | NUR ---
TREATMENT PRESSURE DECREASED TO 200 mmHg FOR PATIENT COMFORT.
[2019-04-05 10:30] VITALS: BP 123/72
--- NOTE | 2019-04-05 10:30 | NUR ---
PATIENT COMPLETED TREATMENT, PACEMAKER SETTINGS RETURNED TO ORIGINAL SETTING. PATIENT WILL RETURN ON WEDNESDAY FOR NEXT TREATMENT. PATIENT CUFF SIZE ADJUSTED TO EXTRA SMALL, UPPER THIGH CUFF TURNED OFF FOR TREATMENT.
== END | disposition home or self-care (01) ==
LOC: CHF HDHVI 09:16
PROVIDERS: ATTEND Internal Medicine Cardiovascular Disease
DX: I25.118 Atherosclerotic heart disease of native coronary artery with other forms of angina pectoris (principal); I25.718 Atherosclerosis of autologous vein coronary artery bypass graft(s) with other forms of angina pectoris; I25.728 Atherosclerosis of autologous artery coronary artery bypass graft(s) with other forms of angina pectoris; I25.798 Atherosclerosis of other coronary artery bypass graft(s) with other forms of angina pectoris; E11.9 Type 2 diabetes mellitus without complications; Z95.1 Presence of aortocoronary bypass graft; Z98.61 Coronary angioplasty status
CPT/HCPCS: G0166

== ENCOUNTER → 2019-04-07 | Outpatient (CLI) | payer MEDICARE ==
[2019-04-07 10:38] VITALS: BP 126/73
[2019-04-07 10:47] VITALS: BP 105/76
== END | disposition home or self-care (01) ==
LOC: Rad HDHVI 09:14
PROVIDERS: ATTEND Internal Medicine Cardiovascular Disease
DX: I25.118 Atherosclerotic heart disease of native coronary artery with other forms of angina pectoris (principal); I25.708 Atherosclerosis of coronary artery bypass graft(s), unspecified, with other forms of angina pectoris; I25.718 Atherosclerosis of autologous vein coronary artery bypass graft(s) with other forms of angina pectoris; I25.728 Atherosclerosis of autologous artery coronary artery bypass graft(s) with other forms of angina pectoris; I25.798 Atherosclerosis of other coronary artery bypass graft(s) with other forms of angina pectoris; I11.0 Hypertensive heart disease with heart failure; I50.9 Heart failure, unspecified; Z95.0 Presence of cardiac pacemaker
CPT/HCPCS: G0166

== ENCOUNTER → 2019-04-10 | Outpatient (CLI) | payer MEDICARE ==
--- NOTE | 2019-04-10 09:07 | NUR ---
TREATMENT # 24 PATIENT ARRIVED ON TIME, FEELING GOOD, MORE ENERGY, CONTINUE TO HAVE LEFT HIP ACHING PAIN, ABLE TO AMBULATE IN A STEADY GAIT, PATIENT IS PLANING TO SEE HIS MD ON WEDNESDAY FOR LEFT HIP ACHING PAIN.\PRE SET OF BLOOD PRESSURE TAKEN 113//66 HR 64, NO NEW MEDICATIONS NOTED, PATIENT WILL TAKE ARRIGINEXT UPON ARRIVAL HOME. PREP PATIENT CHEST, BEGIN TREATMENT, PATIENT WAS ABL ETO TOLERATE PRESSURE UP TO 200 BY PLACING THE WAIST LINE OFF PRESSURE . # 1 PLETH 4 MINUTES INTO TREATMENT P 0.8 A 0.9 I 280 D 619 P 200 HR 75 PATIENT IS TOLERATING THE TREATMENT WELL, OCCASIONAL PAC NOTED, HR ON EECP MONITOR IS MATCHING PATIENT HR, CONTINUE MONITORING. # 2 PLETH 31 MINUTES INTO TREATMENT P 0.9 A 0.5 I 306 D 808 P 200 HR 61 CONTINUE TOLERATING TREATMENT WELL, LESS PAC NOTED, CONTINUE MONITORING # 3 PLETH 52 MINUTES INTO TREATMENT P 0.8 A 0.6 I 281 D 709 P 200 HR 75 PATIENT TOLERATED THE TREATMENT WELL, LESS AND LESS PAC NOTED, PLEASE SEE VITAL SIGNS STOP TREATMENT AT 10:07
[2019-04-10 10:07] VITALS: BP_SYST 113; BP_SYST 117; BP_DIAS 66; BP_DIAS 73
== END | disposition home or self-care (01) ==
LOC: CHF HDHVI 09:05
PROVIDERS: ATTEND Internal Medicine Cardiovascular Disease
DX: I25.718 Atherosclerosis of autologous vein coronary artery bypass graft(s) with other forms of angina pectoris (principal); I25.728 Atherosclerosis of autologous artery coronary artery bypass graft(s) with other forms of angina pectoris; I25.798 Atherosclerosis of other coronary artery bypass graft(s) with other forms of angina pectoris; I25.118 Atherosclerotic heart disease of native coronary artery with other forms of angina pectoris; I11.0 Hypertensive heart disease with heart failure; I50.9 Heart failure, unspecified; Z95.0 Presence of cardiac pacemaker
CPT/HCPCS: G0166